=== PATIENT | female | born 1995 | race Caucasian/White ===

== ENCOUNTER 2023-04-22 10:58 | Outpatient (CLI) | payer BC, SELFPAY ==
--- NOTE | ~2023-04-22 | US_ITS ---
US breast RT complete DATE: 04/22/2023 11:37 INDICATION: Breast pain TECHNIQUE: Complete right breast ultrasound imaging including all 4 quadrants and subareolar COMPARISON: None FINDINGS: No suspicious mass or shadowing, cyst or other significant sonographic abnormality is detec colton within the breast parenchyma. At 4:00 3 cm from the nipple there is an approximately 1.4 x 10 mm area of relative sonolucency, whic h may be related to subcutaneous localized infection or less likely sebaceous cyst. IMPRESSION: No significant abnormality of the fibroglandular stroma Focal subcutaneous lucency at 4:00 3 cm from nipple, possibly due to infection or sebaceous cyst Reviewed, dictated and finalized at [facility]. Reviewed, dictated and finalized at [facility].
== END 2023-04-22 10:59 | disposition home or self-care (01) ==
PROVIDERS: PCP Nurse Practitioner; Visit Provider Clinical Nurse Specialist
DX: N64.4 Mastodynia (principal); Z80.3 Family history of malignant neoplasm of breast; R92.8 Other abnormal and inconclusive findings on diagnostic imaging of breast
CPT/HCPCS: 76641